=== PATIENT | female | born 1975 | race Caucasian/White ===

== ENCOUNTER 2018-08-31 11:13 | Emergency (ER) | payer OTHER ==
[~2018-08-31] VITALS: Ht 154.9 cm; Wt 100.0 kg
[~2018-08-31 11:13] MED LIST: ACET325T33 PO; ADV10050 INH; AMI25 PO; BUPR150T2 PO; CYCL10TA7 PO; MONT10TA21 PO; SUMA100T3 PO; TIOT18CA INH; [UNRECOGNIZED DRUG - CODE] PO; [UNRECOGNIZED DRUG - CODE] PO
[2018-08-31 11:16] VITALS: Ht 154.9 cm; Wt 100.0 kg
--- NOTE | 2018-08-31 13:03 | EN ---
Date/Time of Note Date/Time of Note DATE: 08/31/18 TIME: 13:01 ER Progress Note 43yo female with past medical history of asthma, COPD, lupus currently on 2.5 L of oxygen the last 4 months with multiple complaints including chest pain, neck pain, nausea. Medical screening exam initiated and labs/images ordered. Patient will be seen by another provider. KERRI RICHMOND DO Aug 31, 2018 13:03
[2018-08-31] MEDS ORDERED: GUAI120011 PO (14:52)
[2018-08-31] MEDS ORDERED: OXCA300T41 PO (14:52)
[2018-08-31] MEDS ORDERED: VARE1TAB20 PO (14:52)
[2018-08-31] MEDS ORDERED: DICY10CA40 PO (14:53)
[2018-08-31] MEDS ORDERED: LACT1CAP52 PO (14:54)
[2018-08-31] MEDS ORDERED: OMEP40CA6 PO (14:54)
[2018-08-31] MEDS ORDERED: CETI10TA19 PO (14:54)
[2018-08-31] MEDS ORDERED: DICL50TA11 PO (14:55)
[2018-08-31] MEDS ORDERED: PARO-2 PO (14:56)
[2018-08-31] MEDS ORDERED: ZOLP10TA PO (14:56)
[2018-08-31] MEDS ORDERED: MONT10TA21 PO (14:56)
[2018-08-31] MEDS ORDERED: TIZA2TAB PO (14:57)
[2018-08-31] MEDS ORDERED: ALPR0.5T PO (14:57)
[2018-08-31] MEDS ORDERED: BUTA1CAP38 PO (14:58)
[2018-08-31] MEDS ORDERED: DOCU-144 PO (14:58)
[2018-08-31] MEDS ORDERED: SUMA100T3 PO (14:59)
[2018-08-31] MEDS ORDERED: ONDA4TAB8 PO (14:59)
[2018-08-31] MEDS ORDERED: HYDR2TAB36 PO (15:00)
[2018-08-31] MEDS ORDERED: HYDROmorphONE 0.5 MG/0.5 ML SYG IV STA (15:39)
[2018-08-31] MEDS ORDERED: SOD CHLORIDE 0.9% 1,000 ML IV ONE (16:00)
--- NOTE | 2018-08-31 18:02 | ERD ---
ER Documentation Chief Complaint Chief Complaint BODY PAIN,CHEST, DARLING,NECK PAIN, NAUSEA,DIARRHEA X 2 WEEKS HPI This is a 43-year-old female with a past medical history of lupus, chronic pain, migraines, asthma who is presenting for full body pain, on and off over the last 2 weeks. The patient reports that she recently moved here and is run out of her pain medications. The patient's primary complaint revolves around chest and josh k pain, moderate, dull and aching in sensation. The patient also endorses a throbbing pulsating occipital headache radiating to the front with photophobia and nausea but no vomiting. She denies any other vision changes. The patient also endorses approximately 2 weeks of diarrhea, which has been loose, watery, brown and nonbloody. The patient reports that her symptoms improve when getting pain medicine. She reportedly takes Dilaudid at home, but is currently working with her physician to get records transferred over here so that way she can get a prescription. ROS All systems reviewed and are negative except as per history of present illness. Medications Home Meds Reported Medications Hydromorphone Hcl* (Dilaudid*) 2 Mg Tablet, 2 MG PO TID PRN for PAIN, TAB 08/31/18 Ondansetron Hcl* (Zofran*) 4 Mg Tablet, 4 MG PO Q6H PRN for NAUSEA AND OR VOMITING, TAB 08/31/18 Sumatriptan Succinate* (Imitrex*) 100 Mg Tablet, 100 MG PO BID PRN for MIGRAINE HEADACHE, TAB May repeat after 2 hours if needed; MAX 200 mg/24 hours 08/31/18 Docusate Sodium* (Colace*) 100 Mg Capsule, 100 MG PO BID PRN for CONSTIPATION, #60 CAP 08/31/18 Qcbdgssyby-Aqpyvdgmrpdld-Oklvqiop* (Fioricet*) 50-300-40 Mg Capsule, 1 CAP PO Q6 PRN for HEADACHE, CAP 08/31/18 Alprazolam* (Xanax*) 0.5 Mg Tab, 0.5 MG PO BID PRN for ANXIETY, TAB 08/31/18 Tizanidine Hcl* (Tizanidine Hcl*) 2 Mg Tablet, 2 MG PO DAILY PRN for SPASTICITY, TAB 08/31/18 Zolpidem Tartrate* (Ambien*) 10 Mg Tablet, 10 MG PO QHS PRN for INSOMNIA, TAB 08/31/18 Montelukast Sodium* (Singulair*) 10 Mg Tablet, 10 MG PO QHS, #30 TAB 08/31/18 Paroxetine Hcl* (Paxil*) 20 Mg Tablet, 20 MG PO HS, TAB 08/31/18 Diclofenac Sodium* (Diclofenac Sodium*) 50 Mg Tablet.dr, 100 MG PO QAM, #60 TAB 08/31/18 Omeprazole* (Omeprazole*) 40 Mg Capsule.dr, 40 MG PO DAILY, #30 CAP 08/31/18 Lactobacillus Combo No.10 (Probiotic) 1 Each Capsule, 1 CAP PO DAILY, CAP 08/31/18 Cetirizine Hcl* (Cetirizine Hcl*) 10 Mg Tablet, 10 MG PO DAILY, #30 TAB 08/31/18 Dicyclomine HCl (Dicyclomine HCl) 10 Mg Capsule, 10 MG PO BID 08/31/18 Oxcarbazepine* (Oxcarbazepine*) 300 Mg Tablet, 300 MG PO BID, TAB 08/31/18 Varenicline Tartrate (Chantix) 1 Mg Tablet, 1 MG PO BID, TAB 08/31/18 Guaifenesin (Mucinex) 1,200 Mg Tab.er.12h, 1200 MG PO BID, TAB 08/31/18 Discontinued Reported Medications Tiotropium [place]* (Spiriva*) 18 Mcg Cap.w.dev, 1 PUFF INH DAILY 05/18/11 Salmeterol Xinaf/Fluticasone* (Advair 100/50 Diskus*) 1 Inh Inha, 550 MG INH BID 05/18/11 Amitriptyline Hcl* (Elavil*) 25 Mg Tab, 25 MG PO DAILY 05/18/11 Montelukast Sodium* (Singulair*) 10 Mg Tablet, 10 MG PO QHS 10/27/10 Cyclobenzaprine Hcl* (Cyclobenzaprine Hcl*) 10 Mg Tablet, 10 MG PO BID 10/27/10 Sumatriptan Succinate* (Imitrex*) 100 Mg Tablet, 1 TAB PO PRN 10/27/10 Bupropion Hcl (Budeprion Xl) 150 Mg Tab.sr.24h, 150 MG PO DAILY 10/27/10 Butalb/Acetaminophen/Caffeine (Fioricet Tablet) 1 Tab Tablet, 1 TAB PO PRN 10/27/10 Cetirizine Hcl (Allergy Relief) 10 Mg Tablet, 10 MG PO DAILY 10/27/10 Discontinued Scripts Acetaminophen* (Tylenol*) 325 Mg Tablet, 650 MG PO Q4H PRN for MILD PAIN LEVEL 1-3, #30 TAB Prov:BRENDADARRICKVioletteSYLVIAJyothi Naldo GONGORA 12/20/15 Allergies Allergies: Coded Allergies: topiramate (Verified Allergy, Severe, BLIND, 10/27/10) Sulfa (Sulfonamide Antibiotics) (Verified Allergy, Mild, ITCHING, 10/27/10) cefaclor (Verified Allergy, Mild, HIVES, 10/27/10) Fish Containing Products (Verified Allergy, Unknown, 08/31/18) Latex, Natural Rubber (Verified Allergy, Unknown, 08/31/18) acetaminophen (Verified Allergy, Unknown, 08/31/18) aspirin (Verified Allergy, Unknown, 08/31/18) bee venom protein (honey bee) (Verified Allergy, Unknown, 08/31/18) chicken derived (Verified Allergy, Unknown, 08/31/18) hydrocodone (Verified Allergy, Unknown, 08/31/18) ketorolac (Verified Allergy, Unknown, 08/31/18) morphine (Verified Allergy, Unknown, 08/31/18) peanut (Verified Allergy, Unknown, 08/31/18) tramadol (Verified Allergy, Unknown, 08/31/18) turkey (Verified Allergy, Unknown, 08/31/18) PMhx/Soc History of Surgery: Yes Anesthesia Reaction: No Hx Neurological Disorder: Yes (MIGRAINE H/A) Hx Respiratory Disorders: Yes (ASTHMA/BRONCHITIS) Hx Cardiac Disorders: No (MRSA HEART VALVES) Hx Psychiatric Problems: Yes (STRESS, ANXIETY, DEPRESSION) Hx Miscellaneous Medical Probl: Yes (Lupus) Hx Alcohol Use: Yes (OCCASIONAL) Hx Substance Use: No Hx Tobacco Use: Yes (1 PACK/DAY) Smoking Status: Current every day smoker FmHx Family History: No diabetes Physical Exam Vitals Vital Signs Date Temp Pulse Resp B/P (MAP) Pulse Ox O2 O2 Flow FiO2 Time Delivery Rate 08/31/18 79 18 127/71 100 Nasal 2.0 16:30 (89) Cannula 08/31/18 98.1 88 18 129/75 99 11:16 (93) Physical Exam Const: No apparent distress, well-developed, well-nourished Head: Normocephalic, Atraumatic Eyes: Normal Conjunctiva. Extraocular movements intact. Pupils equal, round and reactive to light ENT: Normal External Ears, Nose and Mouth. Neck: Full range of motion. No meningismus. Resp: Clear to auscultation bilaterally, No wheezes, rales or rhonchi Cardio: Regular rate and rhythm. No murmurs, rubs or gallops Abd: Soft, non tender, non distended. Normal bowel sounds Skin: No petechiae or rashes Back: No midline tenderness. No CVA tenderness Ext: No cyanosis, or edema Neur: Awake and alert, oriented 4. Cranial nerves intact. No facial droop. Normal strength, sensation and coordination. Psych: Normal Mood and Affect Result Diagram: 08/31/18 1323 08/31/18 1323 Results 24 hrs Laboratory Tests Test 08/31/18 13:23 White Blood Count 7.1 10^3/ul Red Blood Count 4.75 10^6/ul Hemoglobin 13.7 g/dl Hematocrit 41.0 % Mean Corpuscular Volume 86.3 fl Mean Corpuscular Hemoglobin 28.8 pg Mean Corpuscular Hemoglobin Concent 33.4 g/dl Red Cell Distribution Width 12.7 % Platelet Count 294 10^3/UL Mean Platelet Volume 10.3 fl Immature Granulocytes % 0.100 % Neutrophils % 59.8 % Lymphocytes % 27.9 % Monocytes % 8.1 % Eosinophils % 3.0 % Basophils % 1.1 % Nucleated Red Blood Cells % 0.0 /100WBC Immature Granulocytes # 0.010 10^3/ul Neutrophils # 4.2 10^3/ul Lymphocytes # 2.0 10^3/ul Monocytes # 0.6 10^3/ul Eosinophils # 0.2 10^3/ul Basophils # 0.1 10^3/ul Nucleated Red Blood Cells # 0.0 10^3/ul Sodium Level 142 mmol/L Potassium Level 4.4 mmol/L Chloride Level 111 mmol/L Carbon Dioxide Level 23 mmol/L Anion Gap 8 Blood Urea Nitrogen 7 mg/dl Creatinine 0.76 mg/dl Est Glomerular Filtrat Rate mL/min > 60 mL/min Glucose Level 93 mg/dl Calcium Level 9.9 mg/dl Phosphorus Level 3.9 mg/dl Magnesium Level 2.1 mg/dl Total Bilirubin 0.3 mg/dl Direct Bilirubin 0.00 mg/dl Indirect Bilirubin 0.3 mg/dl Aspartate Amino Transf (AST/SGOT) 17 IU/L Alanine Aminotransferase (ALT/SGPT) 26 IU/L Alkaline Phosphatase 139 IU/L Troponin I < 0.012 ng/ml B-Type Natriuretic Peptide 125 PG/ML Total Protein 7.3 g/dl Albumin 4.4 g/dl Globulin 2.90 g/dl Albumin/Globulin Ratio 1.51 Current Medications Medications Dose Sig/Dee Start Time Status Last (Trade) Ordered Route PRN Stop Time Admin Dose Reason Admin Sodium 1,000 ml @ Q1H ONCE 08/31/18 DC 08/31/18 Chloride 1,000 mls/hr IV 16:00 08/31/18 16:04 16:59 1 mg ONCE STAT 08/31/18 DC 08/31/18 Hydromorphone IV 15:39 08/31/18 16:04 HCl 16:00 (Dilaudid) Procedures/MDM MDM The patient's presentation warrants further investigation. Previous medical records, if available, were reviewed. LABS The patient's laboratory testing was obtained and reviewed. No emergent treatment was required unless described below. CBC: No E/o systemic infection or severe anemia or thrombocytopenia Chemistry: No E/o severe acidosis or alkalosis or renal failure or liver disease or diabetic ketoacidosis Troponin: No E/o acute ischemia BNP: No E/o heart failure EKG EKG read by me: Rate/Rhythm: Regular rate and rhythm at a rate of 71 bpm Intervals: Normal [place]: Left shifted Impression: No evidence of acute ischemia or arrhythmia IMAGING Imaging and Radiology interpretation reviewed. CXR FINDINGS: Support Hardware: None Cardiovascular: The cardiovascular silhouette appears unremarkable. Lung Davis: The lung davis appear clear with no nodule, alveolar infiltrate, or interstitial prominence evident. Pleural Spaces: No pneumothorax or pleural effusion is identified. Osseous Structures: The osseous structures appear intact. Soft Tissues: The soft tissues appear unremarkable. IMPRESSION: Unremarkable portable chest. Electronically viewed and signed by Martha Forrest Physician on 08/31/2018 13:32 TREATMENT/DISPOSITION The patient presents for symptoms most consistent with exacerbated chronic pains. The patient reports running out of her Dilaudid, which I suspect to be the etiology of her exacerbated pain. Her primary complaint revolves around chest pain. The patient's chest xray does not reveal pneumonia or pneumothorax or pleural effusions or pulmonary edema. The patient does not have a widened mediastinum and does not have signs or symptoms concerning for thoracic aortic aneurysm or dissection. The patient does not have pneumomediastinum or signs concerning for esophageal tear or rupture. The patient has no clinical or radiographic signs of pericardial effusion or tamponade. The patient does not have pneumoperitoneum and I have decreased suspicion of viscus perforation as possible referred pain. The patient does not have a history of heart failure and I have low suspicion for this. The patient does not have a diagnosis of COPD and is not wheezing today. The patient is not tachypneic or hypoxic. The patient is breathing comfortably and without pleuritic pain. The patient is not on hormonal therapy. The patient has no history of clotting or bleeding disorders. The patient has no calf tenderness. The patient has had no hemoptysis. I have decreased suspicion for PE. The patient's troponin and EKG are reassuring. I have low suspicion for acute coronary syndrome. The patient's HEART score is equal to or less than 3. This stratifies the patient into the low risk (<1%) group for an major adverse cardiac event within the next 30 days. Shared decision making was enacted. The risks and benefits of admission and discharge were discussed with the patient and it was ultimately decided that the patient would be discharged with close outpatient follow up and evaluation for functional testing within 72 hours. The patient also endorses diarrhea. She has not had any diarrheal episodes in the emergency department today. I do suspect that the symptoms will be self- limited. It could also be related to opiate withdrawal as she reports not being able to take her medications at home. The patient's abdominal exam is benign. The patient does not have any evidence of peritonitis. The patient does not have clinical symptoms concerning for mesenteric ischemia or ischemic colitis. The patient does not have right upper quadrant tenderness, and I have low suspicion for gallstones, cholecystitis or biliary colic. The patient does not have any epigastric pain. I have low suspicion for gastritis, PUD or GERD. The patient does not have left upper quadrant tenderness. I have low suspicion for pancreatitis. The patient does not have any right lower quadrant tenderness, or periumbilical tenderness. I have low suspicion for appendicitis. The patient does not have suprapubic tenderness. I have decreased suspicion for cystitis. The patient does not have any left lower quadrant tenderness, and I have low suspicion for diverticulosis or diverticulitis. The patient does not have any flank tenderness. The patient does not have gross hematuria. I have decreased suspicion for nephrolithiasis or renal colic. The patient does not have any palpable pulsatile mass or severe abdominal pain radiating to the back. I have low suspicion for aortic aneurysm, dissection or rupture. The patient also endorses a headache. Differential diagnosis includes migraine, tension headache, cluster headache. The patient has no focal deficits. The neurologic exam is reassuring. I have decreased suspicion for cerebral ischemia. There was no trauma or injury. There is no personal or family history of cerebral aneurysm. This is not the worst headache of the patient's life. It was not acutely severe. It is been progressive in nature. I have decreased suspicion for SAH or other ICH. I have low suspicion for temporal arteritis, cavernous venous thrombosis, subdural hematoma, epidural hematoma, meningitis. The patient was treated with IV fluids and 1 dose of Dilaudid to help with symptom control. The patient understands that I will not be prescribing her any opiate medications from the emergency department for her chronic pains. She needs to follow-up with her primary care physician. DISCHARGE Upon reevaluation of the patient, symptoms have improved. No emergent diagnoses were identified. At this time, I feel that the patient stable for discharge. The patient was instructed to follow-up with a primary care physician in 1-3 days. The patient will be given strict precautions with which to return to the emergency department. Prescriptions: None The patient's blood pressure was elevated at greater than 120/80 while in the emergency department. The patient was otherwise stable with no evidence of hypertensive urgency or emergency. The patient does not require admission for blood pressure control. I have discussed with the patient the risks of hypertension. I have instructed the patient to return to the ER for any new or worsening symptoms including chest pain, shortness of breath, headache, blurred vision, confusion, nausea, vomiting or LOC. I have advised the patient to follow up with the primary care physician for outpatient monitoring and treatment for hypertension in 1-3 days. Disclaimer: Inadvertent spelling and grammatical errors are likely due to EHR/dictation software use and do not reflect on the overall quality of patient care. Note that the electronic time recorded on this note does not necessarily reflect the actual time of the patient encounter. Departure Diagnosis: Primary Impression: Chronic pain Chronic pain type: other chronic pain Qualified Codes: G89.29 - Other chronic pain Additional Impressions: Nonspecific chest pain Diarrhea Diarrhea type: unspecified type Qualified Codes: R19.7 - Diarrhea, unspecified Headache Headache type: unspecified Headache chronicity pattern: acute headache Intractability: not intractable Qualified Codes: R51 - Headache Does not refill medications appropriately Condition: Stable Patient Instructions: Chest Pain, Uncertain Cause, Treating Diarrhea, Self-Care for Headaches Additional Instructions: Please follow-up with your primary care physician regarding refill of your pain medications. Thank you for for coming to [facility] for your care today. Please ask your nurse or provider if you have questions about your care today and do not leave until all your questions have been answered. Please use any medications given as directed and follow-up with your doctor (or the doctor you were referred to) in the next 1-3 days. If you do not have a primary care doctor you may follow up at the [facility] or [facility] (listed below). You may also use motrin and tylenol as needed for fever and/or pain unless instructed otherwise by your provider or nurse. Indications for more urgent follow-up have been discussed, but you may return to the Emergency Department at ANY time for any worrisome or worsening symptoms. If you have abdominal pain, please know that no test or exam you received is perfect and you should follow up within 8 hours for continued pain. If you had any imaging studies today, such as an X-Ray or CT Scan, these studies will be reviewed later by a radiologist. You will be called if there are important findings that were not identified today, so make sure the contact information you provided at registration is correct. If you received any narcotic pain control medicine today, such as Vicodin, Morphine or Dilaudid, your coordination and judgment may be affected for a number of hours. Please do not drive or operate heavy machinery, and you may want someone to assist you at home. If you were given a prescription for narcotic medication, be aware that it is very addictive- use sparingly and only if necessary. PLEASE SEEK FURTHER EVALUATION AND MANAGEMENT AT YOUR DOCTORS OFFICE WITHIN THE NEXT 1-3 DAYS. IT IS YOUR RESPONSIBILITY TO MAKE AN APPOINTMENT FOR FOLOW-UP CARE. IF YOU HAVE A PRIMARY DOCTOR, PLEASE CALL THEIR OFFICE TO SCHEDULE AN APPOINTMENT FOR FOLLOW UP. IF YOU DO NOT HAVE A PRIMARY DOCTOR YOU CAN CALL OUR PHYSICIAN REFERRAL HOTLINE AT IF YOU CAN NOT AFFORD TO SEE A PHYSICIAN YOU CAN CHOSE FROM THE FOLLOWING [facility]: [facility] [address] [facility] [address] [facility]. [facility] [address] [facility] [address] [facility]. [facility] [address] [facility]. [address] JAYDE PASCAL MD Aug 31, 2018 18:02
[2018-08-31] MEDS ORDERED: HYDROmorphONE 2 MG TAB PO ONE (20:00)
[2018-08-31 20:17] VITALS: BP 119/78; PULSE 73; RESP 16
== END 2018-08-31 20:19 | disposition home or self-care (01) ==
LOC: E/R 11:13
DX: R07.89 Other chest pain (principal); J45.909 Unspecified asthma, uncomplicated; F17.210 Nicotine dependence, cigarettes, uncomplicated; R19.7 Diarrhea, unspecified; Z91.040 Latex allergy status; Z91.010 Allergy to peanuts
CPT/HCPCS: 71045; 80053; 83735; 83880; 84100; 84484; 85025; 93005; 96374; J1170; J7030; Z7502

== ENCOUNTER 2018-09-21 17:46 | Emergency (ER) | payer SELFPAY ==
[~2018-09-21] VITALS: Ht 170.2 cm; Wt 98.6 kg
[~2018-09-21 17:46] MED LIST changes: -ACET325T33 PO; -ADV10050 INH; +ADV25050 INHALATION; +ALPR0.5T PO; -AMI25 PO; -BUPR150T2 PO; +BUTA1CAP38 PO; +CETI10TA19 PO; -CYCL10TA7 PO; +DICL50TA11 PO; +DICY10CA40 PO; +DOCU-144 PO; +GUAI120011 PO; +HYDR2TAB36 PO; +LACT1CAP52 PO; +LEVO500T48 PO; +MED4DP PO; +OMEP40CA6 PO; +ONDA4TAB8 PO; +OXCA300T41 PO; +PARO-2 PO; +SACC250C9 PO; -TIOT18CA INH; +TIZA2TAB PO; +VARE1TAB20 PO; +ZOLP10TA PO; -[UNRECOGNIZED DRUG - CODE] PO; -[UNRECOGNIZED DRUG - CODE] PO
[2018-09-21 18:11] VITALS: RESP 18; Ht 170.2 cm; Wt 98.6 kg
[2018-09-21 21:22] VITALS: BP 133/61; PULSE 91
== END 2018-09-21 21:57 | disposition left against medical advice (07) ==
LOC: E/R 17:46
DX: Z53.21 Procedure and treatment not carried out due to patient leaving prior to being seen by health care provider (principal)

== ENCOUNTER 2018-10-05 12:47 | Inpatient (IN) | payer OTHER ==
[~2018-10-05] VITALS: Ht 165.1 cm; Wt 97.7 kg
[~2018-10-05 12:47] MED LIST changes: +NITR-58 PO
[2018-10-05] MEDS ORDERED: SOD CHLORIDE 0.9% 1,000 ML IV ONE ×2 (16:00→17:30)
[2018-10-05] MEDS ORDERED: LEVALBUTEROL (NEB) 1.25 MG/0.5 ML AMP HHN ONE (16:00)
[2018-10-05] MEDS ORDERED: IPRATROPIUM (NEB) 0.5 MG/2.5 ML AMP HHN ONE (16:00)
[2018-10-05] MEDS ORDERED: ACET/BUTAL/CAFF TAB PO PRN (22:00)
[2018-10-05] MEDS ORDERED: DOCUSATE SODIUM 100 MG CAP PO PRN (22:00)
[2018-10-05] MEDS ORDERED: SUMATRIPTAN 50 MG TAB PO PRN (22:00)
[2018-10-05] MEDS ORDERED: TIZANIDINE 2 MG TAB PO PRN (22:00)
[2018-10-05 23:23] VITALS: Ht 165.1 cm; Wt 97.7 kg
[2018-10-06] VITALS: BP 114/57; PULSE 53; RESP 19
[2018-10-06] MEDS: LEVOFLOXACIN 500 MG TAB PO SCH ×2 (00:21→15:12)
[2018-10-06] MEDS: ZOLPIDEM 5 MG TAB PO PRN ×2 (00:22→20:49)
[2018-10-06] MEDS: POTASSIUM CHLORIDE 10 MEQ in SOD CHLORIDE 0.9% 1,000 ML IV SCH ×4 (00:29→17:19)
[2018-10-06] MEDS: ALPRAZOLAM 0.5 MG TAB PO PRN ×2 (02:07→08:32)
[2018-10-06] MEDS: PANTOPRAZOLE (EC) 40 MG TAB PO SCH (06:51)
[2018-10-06 08:00] VITALS: BP 85/44; PULSE 64; RESP 19
[2018-10-06] MEDS: DICYCLOMINE 10 MG CAP PO SCH ×2 (08:30→20:35)
[2018-10-06] MEDS: OXCARBAZEPINE 300 MG TAB PO SCH ×2 (08:30→20:34)
[2018-10-06] MEDS: LORATADINE 10 MG TAB PO SCH (08:30)
[2018-10-06] MEDS ORDERED: NON-FORMULARY/PATIENT OWN MED (Varenicline Tartrate (Chantix) 1 MG) PO SCH (09:00)
[2018-10-06] MEDS ORDERED: LACTOBACILLUS COMBO NO 10 PO SCH (09:00)
[2018-10-06] MEDS: GUAIFENESIN LA 600 MG TABSR PO SCH ×2 (09:40→20:34)
[2018-10-06] MEDS: ONDANSETRON 4 MG TAB PO PRN (09:40)
[2018-10-06] MEDS: HYDROmorphONE 2 MG TAB PO PRN ×3 (09:40→20:34)
[2018-10-06 14:00] VITALS: BP 88/51; PULSE 90; RESP 18
[2018-10-06] MEDS: ALBUTEROL/IPRATROPIUM (NEB) 3 ML AMP HHN SCH ×3 (14:44→22:49)
[2018-10-06] MEDS: predniSONE 20 MG TAB GTB SCH (15:12)
[2018-10-06 19:39] VITALS: BP 102/55; PULSE 60; RESP 16
[2018-10-06] MEDS: HEPARIN 5,000 UNIT/1 ML VIAL SC SCH (20:40)
[2018-10-06] MEDS ORDERED: MONTELUKAST 10 MG TAB PO SCH (21:00)
[2018-10-06] MEDS ORDERED: PAROXETINE 20 MG TAB PO SCH (21:00)
[2018-10-07] MEDS: POTASSIUM CHLORIDE 10 MEQ in SOD CHLORIDE 0.9% 1,000 ML IV SCH ×3 (00:19→14:15)
[2018-10-07] MEDS: ALPRAZOLAM 0.5 MG TAB PO PRN (00:54)
[2018-10-07 01:36] VITALS: BP 99/55; PULSE 80; RESP 18
[2018-10-07] MEDS: PANTOPRAZOLE (EC) 40 MG TAB PO SCH (05:25)
[2018-10-07 07:19] VITALS: BP 112/56; PULSE 77; RESP 18
[2018-10-07] MEDS: ALBUTEROL/IPRATROPIUM (NEB) 3 ML AMP HHN SCH ×2 (08:53→14:19)
[2018-10-07] MEDS: LORATADINE 10 MG TAB PO SCH (09:44)
[2018-10-07] MEDS: LEVOFLOXACIN 500 MG TAB PO SCH (09:44)
[2018-10-07] MEDS: DICYCLOMINE 10 MG CAP PO SCH (09:44)
[2018-10-07] MEDS: OXCARBAZEPINE 300 MG TAB PO SCH (09:44)
[2018-10-07] MEDS: GUAIFENESIN LA 600 MG TABSR PO SCH (09:45)
[2018-10-07] MEDS: predniSONE 20 MG TAB GTB SCH (09:45)
[2018-10-07] MEDS: HEPARIN 5,000 UNIT/1 ML VIAL SC SCH (09:50)
[2018-10-07] MEDS: HYDROmorphONE 2 MG TAB PO PRN (09:55)
[2018-10-07] MEDS: ONDANSETRON 4 MG TAB PO PRN (09:59)
== END 2018-10-07 16:20 | disposition home or self-care (01) | DRG 192 ==
LOC: E/R 12:47 → MS1 20:53 → OBSVTOIN 10-06 13:09
PROVIDERS: ADMIT Internal Medicine; ATTEND Internal Medicine
PROC: 3E0F7GC Introduction of Other Therapeutic Substance into Respiratory Tract, Via Natural or Artificial Opening (ICD-10-PCS; principal; 2018-10-05)
DX: J44.1 Chronic obstructive pulmonary disease with (acute) exacerbation (principal); R19.7 Diarrhea, unspecified; I95.9 Hypotension, unspecified; Z72.0 Tobacco use
CPT/HCPCS: 71045; 74176; 80048; 80053; 81003; 81025; 82533; 83605; 83690; 83735; 83880; 84100; 84484; 85025; 85378; 85610; 93005; 93306; 94640; 94664; 97161; G0378; J1170; J1644; J3480; J7030; J7512

== ENCOUNTER 2018-10-20 16:08 | Emergency (ER) | payer OTHER ==
[~2018-10-20] VITALS: Ht 165.1 cm; Wt 95.1 kg
[~2018-10-20 16:08] MED LIST changes: -TIZA2TAB PO
[2018-10-20 16:12] VITALS: Ht 165.1 cm; Wt 95.1 kg
[2018-10-20] MEDS ORDERED: predniSONE 20 MG TAB PO STA (17:46)
[2018-10-20] MEDS ORDERED: ALBUTEROL 0.5% (NEB) 2.5 MG/0.5 ML AMP INH STA (17:46)
[2018-10-20] MEDS ORDERED: OXYCODONE/ACETAMINOPHEN (5/325) TAB PO ONE (19:00)
[2018-10-20 20:17] VITALS: BP 130/81; PULSE 75; RESP 19
== END 2018-10-20 20:18 | disposition home or self-care (01) ==
LOC: E/R 16:08
DX: J44.1 Chronic obstructive pulmonary disease with (acute) exacerbation (principal); G89.4 Chronic pain syndrome; N39.0 Urinary tract infection, site not specified
CPT/HCPCS: 71045; 80053; 81001; 84484; 85025; 93005; 94644; J7512; Z7502; Z7610